=== PATIENT | male | born 1965 | race Caucasian/White ===

== ENCOUNTER 2020-03-10 14:11 | Inpatient (IN) ==
[2020-03-10 15:19] LABS: Basophils % 0.4 %; Eosinophils % 0.4 %; Hematocrit 43.1 % (37.5-50.1); Hemoglobin 15.8 g/dL (12.9-16.9); Immature Granulocytes % 1.7 % (0-4); Lymphocytes # 1.7 K/mcL (0.6-4.6); Lymphocytes % 16.2 %; Mean Corpuscular HGB Conc 36.7 g/dL (31.6-35.5); Mean Corpuscular Hemoglobin 29.4 pg (28.0-33.3); Mean Corpuscular Volume 80.3 fL (83.0-100.0); Mean Platelet Volume 8.7 fL (9.4-12.4); Monocytes % 9.8 %; Neutrophils # 7.3 K/mcL (1.6-8.9); Platelet Count 252 K/mcL (140-400); Red Blood Count 5.37 M/mcL (4.19-5.50); Red Cell Distribution Width 11.8 % (11.5-14.5); Segmented Neutrophils % 71.5 %; White Blood Count 10.3 K/mcL (4.3-11.1)
[2020-03-10 15:42] LABS: Alanine Aminotransferase 21 Units/L (7-52); Albumin 4.9 g/dL (3.5-5.7); Alkaline Phosphatase 89 Units/L (34-104); Amylase 74 Units/L (29-103); Aspartate Amino Transferase 25 Units/L (13-39); BUN/Creatinine Ratio 11 (6-26); Bilirubin,Direct 0.2 mg/dL (0.0-0.2); Bilirubin,Total 1.2 mg/dL (0.3-1.0); Blood Urea Nitrogen 7 mg/dL (6-20); Calcium 8.9 mg/dL (8.6-10.3); Carbon Dioxide 24 mEq/L (23-29); Chloride 75 mEq/L (98-107); Globulin 2.4 g/dL (2.4-3.5); Glucose 110 mg/dL (70-105); Lipase 66 Units/L (11-82); Osmolality,Calculated 219 (280-300); Potassium 4.1 mEq/L (3.5-5.1); Sodium 105 mEq/L (136-145); Total Protein 7.3 g/dL (6.4-8.9); eGFR For African Americans > 60 (> 60); eGFR For Non-African Americans > 60 (> 60)
[2020-03-10 15:47] LABS: Bilirubin,Urine Negative (Negative); Blood,Urine Small (Negative); Clarity,Urine Clear (Clear); Color,Urine Colorless (Yellow); Glucose,Urine (UA) Normal (Normal); Ketones,Urine 10 mg/dL (Negative); Leukocyte Esterase,Urine Negative (Negative); Nitrite,Urine Negative (Negative); PH,Urine 7.5 pH Units (5.0-8.0); Protein,Urine Negative (Neg-Trace); Specific Gravity,Urine 1.009 (1.010-1.025); Urobilinogen,Urine Normal (Normal); WBC,Urine 0-3 per hpf (0-3)
[2020-03-10] MEDS ORDERED: 0.9 % Sodium Chloride 1,000 ML IVC ONE (15:48)
[2020-03-10 16:10] LABS: Magnesium 1.5 mg/dL (1.6-2.6)
[2020-03-10] MEDS ORDERED: Naloxone 0.4 MG/ML INJ IVP PRN (17:53)
[2020-03-10] MEDS ORDERED: Ondansetron ODT 4 MG TAB.RAPDIS SL PRN (17:53)
[2020-03-10 18:26] LABS: Chol/HDL Ratio 3.6 (0-4.9)
[2020-03-10] MEDS: 0.9 % Sodium Chloride 1,000 ML IVC SCH (20:21)
[2020-03-10] MEDS: hydrALAZINE 10 MG TABLET PO PRN (20:21)
[2020-03-11] MEDS: Acetaminophen 325 MG TABLET PO PRN ×2 (01:13→15:13)
[2020-03-11 02:35] LABS: Basophils % 0.2 %; Eosinophils # 0.1 K/mcL (0.0-0.6); Eosinophils % 0.7 %; Hematocrit 42.6 % (37.5-50.1); Hemoglobin 15.6 g/dL (12.9-16.9); Immature Granulocytes % 1.2 % (0-4); Lymphocytes # 2.2 K/mcL (0.6-4.6); Lymphocytes % 17.5 %; Mean Corpuscular HGB Conc 36.6 g/dL (31.6-35.5); Mean Corpuscular Hemoglobin 29.5 pg (28.0-33.3); Mean Corpuscular Volume 80.5 fL (83.0-100.0); Mean Platelet Volume 9.2 fL (9.4-12.4); Monocytes # 1.4 K/mcL (0.0-1.3); Monocytes % 10.8 %; Neutrophils # 8.8 K/mcL (1.6-8.9); Platelet Count 263 K/mcL (140-400); Red Blood Count 5.29 M/mcL (4.19-5.50); Red Cell Distribution Width 11.8 % (11.5-14.5); Segmented Neutrophils % 69.6 %; White Blood Count 12.6 K/mcL (4.3-11.1)
[2020-03-11 03:05] LABS: BUN/Creatinine Ratio 12 (6-26); Blood Urea Nitrogen 6 mg/dL (6-20); Calcium 8.3 mg/dL (8.6-10.3); Carbon Dioxide 20 mEq/L (23-29); Chloride 80 mEq/L (98-107); Glucose 103 mg/dL (70-105); Magnesium 1.9 mg/dL (1.6-2.6); Osmolality,Calculated 226 (280-300); Phosphorous 2.4 mg/dL (2.7-4.5); Potassium 3.9 mEq/L (3.5-5.1); Sodium 109 mEq/L (136-145); eGFR For African Americans > 60 (> 60); eGFR For Non-African Americans > 60 (> 60)
[2020-03-11] MEDS: *HR* Heparin 5,000 UNIT/ML VIAL SQ SCH ×2 (05:45→17:05)
[2020-03-11] MEDS: 0.9 % Sodium Chloride 1,000 ML IVC SCH (11:14)
[2020-03-11] MEDS: Gabapentin 100 MG CAPSULE PO SCH (19:49)
[2020-03-12 03:10] LABS: Hematocrit 42.7 % (37.5-50.1); Hemoglobin 15.4 g/dL (12.9-16.9); Mean Corpuscular HGB Conc 36.1 g/dL (31.6-35.5); Mean Corpuscular Volume 83.1 fL (83.0-100.0); Mean Platelet Volume 8.8 fL (9.4-12.4); Platelet Count 223 K/mcL (140-400); Red Blood Count 5.14 M/mcL (4.19-5.50); Red Cell Distribution Width 11.9 % (11.5-14.5); White Blood Count 8.7 K/mcL (4.3-11.1)
[2020-03-12 03:32] LABS: BUN/Creatinine Ratio 14 (6-26); Blood Urea Nitrogen 8 mg/dL (6-20); Carbon Dioxide 23 mEq/L (23-29); Chloride 79 mEq/L (98-107); Glucose 96 mg/dL (70-105); Osmolality,Calculated 226 (280-300); Potassium 3.9 mEq/L (3.5-5.1); Sodium 109 mEq/L (136-145); eGFR For African Americans > 60 (> 60); eGFR For Non-African Americans > 60 (> 60)
[2020-03-12] MEDS: *HR* Heparin 5,000 UNIT/ML VIAL SQ SCH ×2 (05:32→17:02)
[2020-03-12] MEDS ORDERED: 0.9 % Sodium Chloride 1,000 ML IVC SCH ×2 (07:15→18:00)
[2020-03-12] MEDS: Gabapentin 100 MG CAPSULE PO SCH ×3 (07:16→20:40)
[2020-03-12] MEDS ORDERED: Tolvaptan 15 MG TABLET PO ONE (11:04)
[2020-03-12] MEDS: hydrALAZINE 10 MG TABLET PO PRN (11:39)
[2020-03-12] MEDS ORDERED: D5% in Water 1,000 ML IVC SCH ×2 (19:45→20:30)
[2020-03-13 01:18] LABS: Hematocrit 46.1 % (37.5-50.1); Hemoglobin 16.2 g/dL (12.9-16.9); Mean Corpuscular HGB Conc 35.1 g/dL (31.6-35.5); Mean Corpuscular Hemoglobin 29.3 pg (28.0-33.3); Mean Corpuscular Volume 83.4 fL (83.0-100.0); Mean Platelet Volume 9.4 fL (9.4-12.4); Platelet Count 275 K/mcL (140-400); Red Blood Count 5.53 M/mcL (4.19-5.50); Red Cell Distribution Width 12.2 % (11.5-14.5); White Blood Count 8.2 K/mcL (4.3-11.1)
[2020-03-13 01:40] LABS: BUN/Creatinine Ratio 19 (6-26); Blood Urea Nitrogen 14 mg/dL (6-20); Calcium 9.6 mg/dL (8.6-10.3); Carbon Dioxide 24 mEq/L (23-29); Chloride 89 mEq/L (98-107); Glucose 118 mg/dL (70-105); Osmolality,Calculated 256 (280-300); Sodium 122 mEq/L (136-145); eGFR For African Americans > 60 (> 60); eGFR For Non-African Americans > 60 (> 60)
[2020-03-13] MEDS ORDERED: D5% in Water 1,000 ML IVC SCH ×3 (01:53→06:37)
[2020-03-13] MEDS: *HR* Heparin 5,000 UNIT/ML VIAL SQ SCH ×2 (06:38→17:38)
[2020-03-13] MEDS: Gabapentin 100 MG CAPSULE PO SCH ×3 (07:44→19:52)
[2020-03-14 05:41] LABS: BUN/Creatinine Ratio 16 (6-26); Blood Urea Nitrogen 11 mg/dL (6-20); Calcium 9.1 mg/dL (8.6-10.3); Carbon Dioxide 23 mEq/L (23-29); Chloride 89 mEq/L (98-107); Glucose 105 mg/dL (70-105); Osmolality,Calculated 256 (280-300); Sodium 123 mEq/L (136-145); eGFR For African Americans > 60 (> 60); eGFR For Non-African Americans > 60 (> 60)
[2020-03-14] MEDS: *HR* Heparin 5,000 UNIT/ML VIAL SQ SCH (06:23)
[2020-03-14 07:19] VITALS: BP 130/83
[2020-03-14] MEDS: Gabapentin 100 MG CAPSULE PO SCH (07:30)
== END 2020-03-14 10:00 | disposition home or self-care (01) | DRG 645 ==
LOC: 2NNU 14:11 → EMEROOARM 14:11 → SUATTDRO 17:38 → 2NNU 18:24 → SUATTDRO 03-12 15:18
PROVIDERS: ADMIT Internal Medicine; ATTEND Internal Medicine

== ENCOUNTER 2020-03-26 16:07 | Inpatient (IN) ==
[2020-03-26 17:37] LABS: Basophils # 0.1 K/mcL (0.0-0.2); Basophils % 0.5 %; Eosinophils # 0.1 K/mcL (0.0-0.6); Eosinophils % 0.9 %; Hematocrit 43.3 % (37.5-50.1); Immature Granulocytes % 1.2 % (0-4); Lymphocytes # 1.8 K/mcL (0.6-4.6); Lymphocytes % 16.1 %; Mean Corpuscular HGB Conc 34.6 g/dL (31.6-35.5); Mean Corpuscular Hemoglobin 29.7 pg (28.0-33.3); Mean Corpuscular Volume 85.7 fL (83.0-100.0); Mean Platelet Volume 8.4 fL (9.4-12.4); Monocytes # 1.2 K/mcL (0.0-1.3); Neutrophils # 7.8 K/mcL (1.6-8.9); Platelet Count 307 K/mcL (140-400); Red Blood Count 5.05 M/mcL (4.19-5.50); Red Cell Distribution Width 12.2 % (11.5-14.5); Segmented Neutrophils % 70.3 %; White Blood Count 11.1 K/mcL (4.3-11.1)
[2020-03-26 18:40] LABS: BUN/Creatinine Ratio 13 (6-26); Blood Urea Nitrogen 8 mg/dL (6-20); Calcium 8.8 mg/dL (8.6-10.3); Carbon Dioxide 22 mEq/L (23-29); Chloride 83 mEq/L (98-107); Glucose 96 mg/dL (70-105); Osmolality,Calculated 232 (280-300); Potassium 4.6 mEq/L (3.5-5.1); Sodium 112 mEq/L (136-145); eGFR For African Americans > 60 (> 60); eGFR For Non-African Americans > 60 (> 60)
[2020-03-26] MEDS ORDERED: Naloxone 0.4 MG/ML INJ IVP PRN (19:40)
[2020-03-26] MEDS ORDERED: Gabapentin 100 MG CAPSULE PO PRN (20:25)
[2020-03-26 21:07] LABS: BUN/Creatinine Ratio 15 (6-26); Blood Urea Nitrogen 8 mg/dL (6-20); Calcium 8.8 mg/dL (8.6-10.3); Carbon Dioxide 20 mEq/L (23-29); Chloride 84 mEq/L (98-107); Glucose 111 mg/dL (70-105); Osmolality,Calculated 233 (280-300); Potassium 4.2 mEq/L (3.5-5.1); Sodium 112 mEq/L (136-145); eGFR For African Americans > 60 (> 60); eGFR For Non-African Americans > 60 (> 60)
[2020-03-26 23:03] LABS: BUN/Creatinine Ratio 17 (6-26); Blood Urea Nitrogen 9 mg/dL (6-20); Calcium 8.6 mg/dL (8.6-10.3); Carbon Dioxide 20 mEq/L (23-29); Chloride 84 mEq/L (98-107); Glucose 133 mg/dL (70-105); Osmolality,Calculated 237 (280-300); Potassium 3.8 mEq/L (3.5-5.1); Sodium 113 mEq/L (136-145); eGFR For African Americans > 60 (> 60); eGFR For Non-African Americans > 60 (> 60)
[2020-03-26] MEDS ORDERED: 0.9 % Sodium Chloride 1,000 ML IVC SCH (23:30)
[2020-03-26] MEDS ORDERED: *HR* Metoprolol 5 MG/5 ML VIAL IVP PRN (23:30)
[2020-03-26 23:57] LABS: Amorphous Sediment,Urine Few per hpf (None-Few); Bilirubin,Urine Negative (Negative); Blood,Urine Small (Negative); Clarity,Urine Turbid (Clear); Color,Urine Light-Yellow (Yellow); Glucose,Urine (UA) Normal (Normal); Ketones,Urine Negative (Negative); Leukocyte Esterase,Urine Negative (Negative); Mucus,Urine Few per lpf (None-Few); Nitrite,Urine Negative (Negative); Protein,Urine Negative (Neg-Trace); Specific Gravity,Urine 1.018 (1.010-1.025); Urobilinogen,Urine Normal (Normal); WBC,Urine 0-3 per hpf (0-3)
[2020-03-27] MEDS: Acetaminophen 325 MG TABLET PO PRN (01:11)
[2020-03-27 01:14] LABS: BUN/Creatinine Ratio 14 (6-26); Blood Urea Nitrogen 8 mg/dL (6-20); Calcium 8.5 mg/dL (8.6-10.3); Carbon Dioxide 20 mEq/L (23-29); Chloride 83 mEq/L (98-107); Glucose 93 mg/dL (70-105); Osmolality,Calculated 232 (280-300); Potassium 4.2 mEq/L (3.5-5.1); Sodium 112 mEq/L (136-145); eGFR For African Americans > 60 (> 60); eGFR For Non-African Americans > 60 (> 60)
[2020-03-27 05:07] LABS: Basophils # 0.1 K/mcL (0.0-0.2); Basophils % 0.5 %; Eosinophils # 0.2 K/mcL (0.0-0.6); Eosinophils % 1.9 %; Hematocrit 42.4 % (37.5-50.1); Hemoglobin 15.2 g/dL (12.9-16.9); Immature Granulocytes % 1.5 % (0-4); Lymphocytes # 2.6 K/mcL (0.6-4.6); Lymphocytes % 24.6 %; Mean Corpuscular HGB Conc 35.8 g/dL (31.6-35.5); Mean Corpuscular Hemoglobin 30.6 pg (28.0-33.3); Mean Corpuscular Volume 85.3 fL (83.0-100.0); Mean Platelet Volume 8.6 fL (9.4-12.4); Monocytes # 1.1 K/mcL (0.0-1.3); Monocytes % 10.8 %; Neutrophils # 6.3 K/mcL (1.6-8.9); Platelet Count 303 K/mcL (140-400); Red Blood Count 4.97 M/mcL (4.19-5.50); Red Cell Distribution Width 12.2 % (11.5-14.5); Segmented Neutrophils % 60.7 %; White Blood Count 10.4 K/mcL (4.3-11.1)
[2020-03-27 05:34] LABS: BUN/Creatinine Ratio 14 (6-26); Blood Urea Nitrogen 8 mg/dL (6-20); Calcium 8.6 mg/dL (8.6-10.3); Carbon Dioxide 19 mEq/L (23-29); Chloride 84 mEq/L (98-107); Glucose 100 mg/dL (70-105); Osmolality,Calculated 232 (280-300); Potassium 4.1 mEq/L (3.5-5.1); Sodium 112 mEq/L (136-145); eGFR For African Americans > 60 (> 60); eGFR For Non-African Americans > 60 (> 60)
[2020-03-27] MEDS: *HR* Enoxaparin 40 MG/0.4 ML SYRINGE SQ SCH (06:12)
[2020-03-27 08:42] LABS: BUN/Creatinine Ratio 13 (6-26); Blood Urea Nitrogen 8 mg/dL (6-20); Calcium 8.8 mg/dL (8.6-10.3); Carbon Dioxide 21 mEq/L (23-29); Chloride 83 mEq/L (98-107); Glucose 107 mg/dL (70-105); Osmolality,Calculated 229 (280-300); Potassium 4.6 mEq/L (3.5-5.1); Sodium 110 mEq/L (136-145); eGFR For African Americans > 60 (> 60); eGFR For Non-African Americans > 60 (> 60)
[2020-03-27 13:13] LABS: BUN/Creatinine Ratio 14 (6-26); Blood Urea Nitrogen 9 mg/dL (6-20); Calcium 8.5 mg/dL (8.6-10.3); Carbon Dioxide 21 mEq/L (23-29); Chloride 83 mEq/L (98-107); Glucose 99 mg/dL (70-105); Osmolality,Calculated 233 (280-300); Potassium 4.2 mEq/L (3.5-5.1); Sodium 112 mEq/L (136-145); eGFR For African Americans > 60 (> 60); eGFR For Non-African Americans > 60 (> 60)
[2020-03-27 16:42] LABS: BUN/Creatinine Ratio 15 (6-26); Blood Urea Nitrogen 11 mg/dL (6-20); Calcium 8.6 mg/dL (8.6-10.3); Carbon Dioxide 26 mEq/L (23-29); Chloride 83 mEq/L (98-107); Glucose 86 mg/dL (70-105); Osmolality,Calculated 235 (280-300); Potassium 4.9 mEq/L (3.5-5.1); Sodium 113 mEq/L (136-145); eGFR For African Americans > 60 (> 60); eGFR For Non-African Americans > 60 (> 60)
[2020-03-27 20:47] LABS: BUN/Creatinine Ratio 15 (6-26); Blood Urea Nitrogen 11 mg/dL (6-20); Calcium 9.2 mg/dL (8.6-10.3); Carbon Dioxide 26 mEq/L (23-29); Chloride 80 mEq/L (98-107); Glucose 93 mg/dL (70-105); Osmolality,Calculated 233 (280-300); Potassium 4.1 mEq/L (3.5-5.1); Sodium 112 mEq/L (136-145); eGFR For African Americans > 60 (> 60); eGFR For Non-African Americans > 60 (> 60)
[2020-03-28 01:09] LABS: BUN/Creatinine Ratio 18 (6-26); Blood Urea Nitrogen 11 mg/dL (6-20); Calcium 8.4 mg/dL (8.6-10.3); Carbon Dioxide 19 mEq/L (23-29); Chloride 83 mEq/L (98-107); Glucose 89 mg/dL (70-105); Osmolality,Calculated 229 (280-300); Potassium 4.3 mEq/L (3.5-5.1); Sodium 110 mEq/L (136-145); eGFR For African Americans > 60 (> 60); eGFR For Non-African Americans > 60 (> 60)
[2020-03-28] MEDS: *HR* Enoxaparin 40 MG/0.4 ML SYRINGE SQ SCH (05:26)
[2020-03-28 06:11] LABS: Hematocrit 43.6 % (37.5-50.1); Hemoglobin 15.4 g/dL (12.9-16.9); Mean Corpuscular HGB Conc 35.3 g/dL (31.6-35.5); Mean Platelet Volume 8.6 fL (9.4-12.4); Platelet Count 281 K/mcL (140-400); Red Blood Count 5.13 M/mcL (4.19-5.50); Red Cell Distribution Width 12.1 % (11.5-14.5); White Blood Count 9.2 K/mcL (4.3-11.1)
[2020-03-28 06:22] LABS: Prothrombin Time 11.6 Seconds (9.4-12.1)
[2020-03-28 06:47] LABS: BUN/Creatinine Ratio 16 (6-26); Blood Urea Nitrogen 10 mg/dL (6-20); Calcium 8.9 mg/dL (8.6-10.3); Carbon Dioxide 21 mEq/L (23-29); Chloride 83 mEq/L (98-107); Glucose 98 mg/dL (70-105); Magnesium 1.6 mg/dL (1.6-2.6); Osmolality,Calculated 231 (280-300); Phosphorous 2.3 mg/dL (2.7-4.5); Sodium 111 mEq/L (136-145); eGFR For African Americans > 60 (> 60); eGFR For Non-African Americans > 60 (> 60)
[2020-03-28 06:50] LABS: Thyroid Stimulating Hormone 1.813 mcIU/mL (0.340-5.600)
[2020-03-29] MEDS: *HR* Enoxaparin 40 MG/0.4 ML SYRINGE SQ SCH (04:57)
[2020-03-29] MEDS ORDERED: Ondansetron 4 MG/2 ML VIAL ONE ×2 (07:34→08:15)
[2020-03-29] MEDS ORDERED: *HR* FentaNYL (PF) 100 MCG/2 ML VIAL ONE (07:34)
[2020-03-29] MEDS ORDERED: Dexamethasone 4 MG/ML VIAL ONE ×2 (07:34→08:15)
[2020-03-29] MEDS ORDERED: *HR* Rocuronium Bromide 50 MG/5 ML VIAL ONE (07:34)
[2020-03-29] MEDS ORDERED: Lidocaine -MPF 4% 5 ML AMPUL ONE (07:34)
[2020-03-29] MEDS ORDERED: *HR* Midazolam HCl 2 MG/2 ML VIAL ONE (07:34)
[2020-03-29] MEDS ORDERED: *HR* Propofol 200 MG/20 ML VIAL IVP ONE (07:34)
[2020-03-29] MEDS ORDERED: Morphine Sulfate 2 MG/ML SYRINGE IVP PRN (07:40)
[2020-03-29] MEDS ORDERED: *HR* Promethazine 25 MG/ML VIAL IVP PRN ×2 (07:40→09:43)
[2020-03-29] MEDS ORDERED: Ondansetron 4 MG/2 ML VIAL IVP ONE (07:40)
[2020-03-29] MEDS ORDERED: Ringers Solution, Lactated 1,000 ML IVC SCH (07:45)
[2020-03-29] MEDS ORDERED: *HR* PHENYLEPHRINE 1,000 MCG/10 ML SYRINGE IVP ONE (08:15)
[2020-03-29] MEDS ORDERED: Ondansetron 4 MG/2 ML VIAL IVP PRN (09:44)
[2020-03-29 11:35] LABS: BUN/Creatinine Ratio 14 (6-26); Blood Urea Nitrogen 10 mg/dL (6-20); Calcium 8.5 mg/dL (8.6-10.3); Carbon Dioxide 24 mEq/L (23-29); Chloride 81 mEq/L (98-107); Glucose 104 mg/dL (70-105); Osmolality,Calculated 231 (280-300); Potassium 4.8 mEq/L (3.5-5.1); Sodium 111 mEq/L (136-145); eGFR For African Americans > 60 (> 60); eGFR For Non-African Americans > 60 (> 60)
[2020-03-29] MEDS ORDERED: Tolvaptan 15 MG TABLET PO ONE (13:27)
[2020-03-29] MEDS: Acetaminophen 325 MG TABLET PO PRN (15:15)
[2020-03-29] MEDS ORDERED: Gadolinium Contrast Agent (WT Based) IV PRN (16:19)
[2020-03-30] MEDS: *HR* Enoxaparin 40 MG/0.4 ML SYRINGE SQ SCH (06:00)
[2020-03-30 06:56] LABS: BUN/Creatinine Ratio 17 (6-26); Blood Urea Nitrogen 14 mg/dL (6-20); Calcium 10.4 mg/dL (8.6-10.3); Carbon Dioxide 25 mEq/L (23-29); Chloride 87 mEq/L (98-107); Glucose 117 mg/dL (70-105); Osmolality,Calculated 250 (280-300); Potassium 4.4 mEq/L (3.5-5.1); Sodium 119 mEq/L (136-145); eGFR For African Americans > 60 (> 60); eGFR For Non-African Americans > 60 (> 60)
[2020-03-30 11:34] LABS: Appearance of Body Fluid Slightly Hazy (Clear); Volume of Body Fluid 15 mL
[2020-03-31 03:41] LABS: BUN/Creatinine Ratio 21 (6-26); Blood Urea Nitrogen 16 mg/dL (6-20); Calcium 9.4 mg/dL (8.6-10.3); Carbon Dioxide 23 mEq/L (23-29); Chloride 94 mEq/L (98-107); Glucose 91 mg/dL (70-105); Osmolality,Calculated 263 (280-300); Potassium 4.3 mEq/L (3.5-5.1); Sodium 126 mEq/L (136-145); eGFR For African Americans > 60 (> 60); eGFR For Non-African Americans > 60 (> 60)
[2020-03-31] MEDS: *HR* Enoxaparin 40 MG/0.4 ML SYRINGE SQ SCH (06:48)
[2020-03-31 08:51] VITALS: BP 123/73
== END 2020-03-31 11:52 | disposition home or self-care (01) | DRG 167 ==
LOC: EMEROOARM 16:07 → 2ANU 16:07 → SUATTDRO 19:35 → 2ANU 20:59
PROVIDERS: ADMIT Family Medicine; ATTEND Internal Medicine